=== PATIENT | male | born 1945 | race Caucasian/White ===

== ENCOUNTER → 2018-02-27 | Day surgery (SDC) | payer MEDICARE ==
[~2018-02-27] MED LIST: ALBUAER3 INH; ASPI-183 PO; ATOR40TA16 PO; BUPIVACAINE HCL PF 0.75% 30 ML VIAL ONE; CLAR10CA3 PO; DOXY1CAP74 PO; GABA300C5 PO; GLYB5TAB3 PO; LISI10TA PO; LOVA20TA PO; MELO7.5T27 PO; METF500T PO; METO50TA PO; PRIL20TA2 PO; PROPOFOL 200 MG/20 ML AMP IV ONE; TERA5CAP3 PO; TRIAMCINOLONE ACETONIDE 40 MG/ML VIAL I-ARTICULR ONE; TYLETAB34 PO; VASO10TA8 PO
--- NOTE | 2018-02-27 11:16 | M6 ---
cc: Cortney Shankar MD DATE: 02/27/2018 DATE OF : 1945 PROCEDURE: Fluoroscopically-guided injection, bilateral lumbar facet joints (bilateral L3-4, L4-5, and L5-S1 facet joints). History and physical was completed and signed. Consent was signed. Procedure site was marked. Medications were listed and reconciled. Pain score was recorded. Allergies were noted. Time out was taken. Fluoroscopy time was recorded where applicable. Sedation was administered or directed by Dr. Shankar. The patient was given oxygen. The patient was monitored by a registered nurse. Total procedure time was greater than 15 minutes. PROCEDURE NOTE: IV was started. Blood pressure cuff, pulse oximeter and EKG were applied. The patient was placed in the prone position on a Hiram table, sedated with small amounts of propofol titrated to effect. Vital signs were monitored and remained stable throughout the procedure. The lumbar area was prepped with alcohol and 10% Betadine solution and draped with sterile drapes. Fluoroscopy was used in a Nba dog view to clearly visualize the bilateral lumbar facet joints at L3-L4, L4-L5 and L5-S1. Separate sterile 3-1/2-inch, 25-gauge spinal needles were advanced into these joints under fluoroscopic guidance. There was negative aspiration for blood or any other type of fluid and at each location, the patient was given 1 mL of Marcaine 0.75%, which contained 10 mg of Kenalog. Following the procedure, the patient was taken to the recovery room with stable vital signs, neurologically intact. He will be evaluated immediately and with followup to determine if he has a subjective decrease in his usual pain and a corresponding objective increase in his functional capabilities. MD ARMANDO Rodriguez/ROYER , 10:24 AM , 11:16 AM
== END | disposition home or self-care (01) ==
LOC: PHSDC 09:11
PROVIDERS: ATTEND Pain Medicine Interventional Pain Medicine
DX: M54.5 Low back pain (principal)
CPT/HCPCS: 64493; 64494; 64495; 99152; J3301